=== PATIENT | female | born 1960 | race Two or more races ===

== ENCOUNTER 2019-07-16 10:04 | Outpatient (CLI) | payer OTHER | END 2019-07-16 11:58 | disposition home or self-care (01) | LOC: OFIC 805 10:04 | DX: J32.8 Other chronic sinusitis (principal); R68.84 Jaw pain; R09.81 Nasal congestion ==

== ENCOUNTER 2025-05-13 09:26 | Outpatient (CLI) | payer OTHER | END 2025-05-13 09:42 | disposition home or self-care (01) | LOC: RAD 09:26 | PROVIDERS: ATTEND Orthopaedic Surgery | DX: M25.561 Pain in right knee (principal); M25.562 Pain in left knee ==